=== PATIENT | female | born 1945 | race Caucasian/White ===

== ENCOUNTER 2021-05-31 08:09 | Day surgery (SDC) | payer BC, MEDICARE ==
[2021-05-29 10:25] VITALS: BP 140/60
[2021-05-29 10:27] LABS: BASOPHILS % (AUTO) 0.5 % (0.0-5.0); EOSINOPHILS % (AUTO) 4.9 % (0.0-8.0); HEMATOCRIT 37.1 % (36-48); LYMPHOCYTES % (AUTO) 22.5 % (21.0-51.0); MEAN CORPUSCULAR HEMOGLOBIN 28.6 pg (27.0-33.0); MEAN CORPUSCULAR HGB CONC 29.9 g/dL (32.0-36.0); MEAN CORPUSCULAR VOLUME 95.6 fL (79-99); MONOCYTES % (AUTO) 10.2 % (3.0-13.0); NEUTROPHILS % (AUTO) 61.6 % (40.0-77.0); PLATELET COUNT (AUTO) 165 K/uL (130-400); RED BLOOD CELL COUNT(AUTO) 3.88 MIL/uL (4.00-5.50); WHITE BLOOD COUNT (AUTO) 6.1 K/uL (4.8-10.8)
[2021-05-29 10:37] LABS: CREATININE 0.7 mg/dL (0.5-1.5)
[~2021-05-31] VITALS: Ht 160 cm; Wt 80.3 kg
[~2021-05-31 08:09] MED LIST: LORA10TA7 PO; ROSU5TAB12 PO
[2021-05-31] MEDS ORDERED: 0.9%NACL 1000ML 1,000 ML IV ONE (08:53)
[2021-05-31] MEDS ORDERED: IOHEXOL 350 MG/ML 100ML INFUS..BTL IV ONE (09:37)
== END 2021-05-31 12:20 | disposition home or self-care (01) ==
LOC: DAH 08:09
PROVIDERS: ATTEND Internal Medicine Hematology & Oncology
DX: K75.0 Abscess of liver (principal); D72.829 Elevated white blood cell count, unspecified; K76.89 Other specified diseases of liver; K57.30 Diverticulosis of large intestine without perforation or abscess without bleeding; J90 Pleural effusion, not elsewhere classified; D64.9 Anemia, unspecified; Z53.8 Procedure and treatment not carried out for other reasons
CPT/HCPCS: 36415; 74160; 80048; 85025; A4215; A4216; A4221; A4222; A4223 ×3; A4606; A4657; A4663; J7030 ×2; Q9967

== ENCOUNTER 2021-06-20 08:42 | Day surgery (SDC) | payer BC, MEDICARE ==
[2021-06-18 15:26] LABS: BASOPHILS % (AUTO) 0.3 % (0.0-5.0); EOSINOPHILS % (AUTO) 3.4 % (0.0-8.0); HEMATOCRIT 37.2 % (36-48); LYMPHOCYTES % (AUTO) 27.1 % (21.0-51.0); MEAN CORPUSCULAR HEMOGLOBIN 29.2 pg (27.0-33.0); MEAN CORPUSCULAR HGB CONC 30.1 g/dL (32.0-36.0); MEAN CORPUSCULAR VOLUME 96.9 fL (79-99); MONOCYTES % (AUTO) 8.9 % (3.0-13.0); PLATELET COUNT (AUTO) 182 K/uL (130-400); RED BLOOD CELL COUNT(AUTO) 3.84 MIL/uL (4.00-5.50); RED CELL DISTRIBUTION WIDTH 15.5 % (11.0-15.5); WHITE BLOOD COUNT (AUTO) 6.4 K/uL (4.8-10.8)
[2021-06-18 15:47] LABS: ALBUMIN 2.3 g/dL (3.5-5.0); BILIRUBIN,TOTAL 0.6 mg/dL (0.2-1.0); CREATININE 0.8 mg/dL (0.5-1.5); POTASSIUM 3.8 mmol/L (3.5-5.1); TOTAL PROTEIN, SERUM 5.7 g/dL (6.0-8.3)
[2021-06-20] MEDS ORDERED: 0.9%NACL 1000ML 1,000 ML IV ONE (10:14)
[2021-06-20] MEDS ORDERED: IOHEXOL-350 50ML VIAL IV ONE (11:09)
[2021-06-20 11:33] VITALS: BP 119/51
[2021-06-20 11:48] VITALS: BP 115/49
[2021-06-20 12:03] VITALS: BP 110/51
[2021-06-20 12:18] VITALS: BP 118/52
== END 2021-06-20 12:34 | disposition home or self-care (01) ==
LOC: DAH 08:42
PROVIDERS: ATTEND Internal Medicine Hematology & Oncology
DX: K75.0 Abscess of liver (principal); K76.89 Other specified diseases of liver; D72.829 Elevated white blood cell count, unspecified; D68.9 Coagulation defect, unspecified; I10 Essential (primary) hypertension; E78.5 Hyperlipidemia, unspecified; J44.9 Chronic obstructive pulmonary disease, unspecified; Z87.891 Personal history of nicotine dependence; Z98.891 History of uterine scar from previous surgery
CPT/HCPCS: 36415; 49424; 76080; 80053; 85025; 87635; A4215; A4216; A4221; A4222; A4223 ×3; A4606; A4663; C9803; J7030 ×2; Q9967; 42400

== ENCOUNTER → 2021-07-11 | Outpatient (CLI) | payer BC, MEDICARE ==
[~2021-07-11] VITALS: Ht 160 cm; Wt 61.3 kg
[~2021-07-11] MED LIST changes: +LACTATED RINGERS 1000ML 1,000 ML IV SCH; +LEVOFLOXACIN 500 MG/D5W 100 ML 100 ML IV SCH
[2021-07-11 11:59] LABS: HEMATOCRIT 42.9 % (36-48); MEAN CORPUSCULAR HEMOGLOBIN 29.2 pg (27.0-33.0); MEAN CORPUSCULAR HGB CONC 30.5 g/dL (32.0-36.0); MEAN CORPUSCULAR VOLUME 95.5 fL (79-99); PLATELET COUNT (AUTO) 170 K/uL (130-400); RED BLOOD CELL COUNT(AUTO) 4.49 MIL/uL (4.00-5.50); RED CELL DISTRIBUTION WIDTH 13.9 % (11.0-15.5); WHITE BLOOD COUNT (AUTO) 5.3 K/uL (4.8-10.8)
[2021-07-11 12:06] LABS: INR 1.17 (0.85-1.15); PROTHROMBIN TIME 12.6 SEC (9.6-11.6)
[2021-07-11 12:08] LABS: PARTIAL THROMBOPLASTIN TIME 29.7 SEC (26.3-35.5)
[2021-07-11 12:10] LABS: ALBUMIN 2.9 g/dL (3.5-5.0); BILIRUBIN,TOTAL 0.7 mg/dL (0.2-1.0); CREATININE 0.8 mg/dL (0.5-1.5); POTASSIUM 3.7 mmol/L (3.5-5.1)
[2021-07-15 09:55] VITALS: BP 180/86
== END | disposition home or self-care (01) ==
LOC: DAH 10:00 → EDSTATUS 07-16 07:30
PROVIDERS: ATTEND Urology
DX: Z01.818 Encounter for other preprocedural examination (principal); N20.0 Calculus of kidney; J90 Pleural effusion, not elsewhere classified; Z98.890 Other specified postprocedural states; Z79.01 Long term (current) use of anticoagulants
CPT/HCPCS: 36415; 71046; 74018; 80053; 85027; 85610; 85730; 87088; 93005; J7120

== ENCOUNTER → 2022-07-29 | Outpatient (CLI) | payer BC, MEDICARE ==
[~2022-07-29] MED LIST changes: +IOHEXOL 350 MG/ML 100ML INFUS..BTL IV ONE; -LACTATED RINGERS 1000ML 1,000 ML IV SCH; -LEVOFLOXACIN 500 MG/D5W 100 ML 100 ML IV SCH
== END | disposition home or self-care (01) ==
LOC: RAH 12:11
PROVIDERS: ATTEND Otolaryngology
DX: C32.0 Malignant neoplasm of glottis (principal); J84.10 Pulmonary fibrosis, unspecified; R59.0 Localized enlarged lymph nodes; M47.815 Spondylosis without myelopathy or radiculopathy, thoracolumbar region
CPT/HCPCS: 71260; 70491; Q9967

== ENCOUNTER 2022-11-27 12:31 | Inpatient (IN) | payer BC, MEDICARE ==
[~2022-11-27] VITALS: Ht 162.6 cm; Wt 54.3 kg
[~2022-11-27 12:31] MED LIST changes: -IOHEXOL 350 MG/ML 100ML INFUS..BTL IV ONE; +LEVOFLOXACIN 500 MG/D5W 100 ML 100 ML IV ONE
[2022-11-27] MEDS ORDERED: 0.9%NACL 1000ML 1,000 ML IV ONE (13:00)
[2022-11-27 13:02] LABS: IMMATURE GRANULOCYTE ABSOLUTE 0.04 K/uL (0-1); LYMPHOCYTES # (AUTO) 2.3 K/uL (1.0-4.8); LYMPHOCYTES % (AUTO) 42.6 % (21.0-51.0); MEAN CORPUSCULAR HEMOGLOBIN 30.5 pg (27.0-33.0); MEAN CORPUSCULAR HGB CONC 32.7 g/dL (32.0-36.0); MEAN CORPUSCULAR VOLUME 93.4 fL (79-99); MONOCYTES # (AUTO) 0.3 K/uL (0.1-1.0); NEUTROPHILS # (AUTO) 2.8 K/uL (1.8-7.7); NEUTROPHILS % (AUTO) 50.7 % (40.0-77.0); NUCLEATED RED BLOOD CELLS 0.5 % (0.0-0.19); PLATELET COUNT (AUTO) 113 K/uL (130-400); RED BLOOD CELL COUNT(AUTO) 5.14 MIL/uL (4.00-5.50); RED CELL DISTRIBUTION WIDTH 18.4 % (11.0-15.5); WHITE BLOOD COUNT (AUTO) 5.5 K/uL (4.8-10.8)
[2022-11-27 13:14] LABS: CREATININE 1.2 mg/dL (0.5-1.5); POTASSIUM 3.7 mmol/L (3.5-5.1)
[2022-11-27 13:16] LABS: INR 1.1 (0.85-1.15); PROTHROMBIN TIME 12.7 SEC (9.6-11.6)
[2022-11-27 13:18] LABS: PARTIAL THROMBOPLASTIN TIME 27.6 SEC (26.3-35.5)
[2022-11-27 13:19] LABS: ALBUMIN 3.1 g/dL (3.5-5.0); BILIRUBIN,TOTAL 2.5 mg/dL (0.2-1.0); TOTAL PROTEIN, SERUM 7.2 g/dL (6.0-8.3)
[2022-11-27 13:35] LABS: ADD UA MICROSCOPIC YES
[2022-11-27 13:37] LABS: APPEARANCE,URINE CLOUDY (CLEAR); BILIRUBIN,URINE NEGATIVE (NEGATIVE); COLOR,URINE YELLOW (YELLOW); GLUCOSE, URINE (UA) 30 mg/dL (NEGATIVE); KETONES,URINE 10 mg/dL (NEGATIVE); LEUKOCYTE ESTERASE ,URINE 500 Leu/uL (NEGATIVE); NITRATE,URINE NEGATIVE (NEGATIVE); OCCULT BLOOD,URINE NEGATIVE (NEGATIVE); PROTEIN,URINE 50 mg/dL (NEGATIVE)
[2022-11-27 14:10] LABS: BACTERIA,URINE RARE /HPF (None Seen); MUCUS,URINE RARE LPF (None Seen); SQUAMOUS EPITHELIAL CELL,UR MANY /HPF (0-2)
[2022-11-27] MEDS ORDERED: APIX5TAB PO (14:15)
[2022-11-27] MEDS ORDERED: LEVOFLOXACIN 500 MG/D5W 100 ML 100 ML IV STA (14:55)
[2022-11-27] MEDS ORDERED: LEVOFLOXACIN 500 MG/D5W 100 ML 100 ML IV SCH (16:00)
[2022-11-27] MEDS ORDERED: ACETAMINOPHEN 650 MG/20.3 ML UDCUP PEG PRN (16:00)
[2022-11-27] MEDS ORDERED: 0.9%NACL 1000ML 1,000 ML IV SCH (16:30)
[2022-11-27] MEDS: DEXTROSE 5%-WATER 1,000 ML IV SCH (17:01)
[2022-11-27] MEDS ORDERED: ACETAMINOPHEN 650 MG/20.3 ML UDCUP PO PRN (20:00)
[2022-11-27 20:26] VITALS: BP 125/73; PULSE 114; RESP 22
[2022-11-27 21:30] VITALS: O2SAT 94
[2022-11-27] MEDS: FAMOTIDINE 20MG VIAL IV SCH (22:27)
[2022-11-28] VITALS (7 sets, daily range): BP systolic 125–172; BP diastolic 53–85; PULSE 106–127; RESP 16–20; O2SAT 96
[2022-11-28 03:45] LABS: BASOPHILS # (AUTO) 0.09 K/uL (0.00-0.20); BASOPHILS % (AUTO) 2.4 % (0.0-5.0); HEMATOCRIT 38.2 % (36-48); IMMATURE GRANULOCYTE ABSOLUTE 0.04 K/uL (0-1); LYMPHOCYTES # (AUTO) 0.9 K/uL (1.0-4.8); LYMPHOCYTES % (AUTO) 22.8 % (21.0-51.0); MEAN CORPUSCULAR HEMOGLOBIN 30.7 pg (27.0-33.0); MEAN CORPUSCULAR HGB CONC 31.9 g/dL (32.0-36.0); MONOCYTES # (AUTO) 0.2 K/uL (0.1-1.0); MONOCYTES % (AUTO) 5.4 % (3.0-13.0); NEUTROPHILS # (AUTO) 2.5 K/uL (1.8-7.7); NEUTROPHILS % (AUTO) 68.3 % (40.0-77.0); PLATELET COUNT (AUTO) 46 K/uL (130-400); RED BLOOD CELL COUNT(AUTO) 3.98 MIL/uL (4.00-5.50); RED CELL DISTRIBUTION WIDTH 17.3 % (11.0-15.5); WHITE BLOOD COUNT (AUTO) 3.7 K/uL (4.8-10.8)
[2022-11-28 04:54] LABS: ERYTHROCYTE SEDIMENTATION RATE 60 MM/HR (0-30)
[2022-11-28 05:33] LABS: CRP QUANTITATIVE 247.7 mg/L (0.00-9.0)
[2022-11-28 05:34] LABS: POTASSIUM 3.3 mmol/L (3.5-5.1)
[2022-11-28 05:35] LABS: BILIRUBIN,TOTAL 2.2 mg/dL (0.2-1.0); CREATININE 0.9 mg/dL (0.5-1.5)
[2022-11-28 05:38] LABS: TOTAL PROTEIN, SERUM 6.6 g/dL (6.0-8.3)
[2022-11-28 05:39] LABS: ALBUMIN 2.4 g/dL (3.5-5.0)
[2022-11-28] MEDS ORDERED: POTASSIUM CHLORIDE 20MEQ/100ML 100 ML IV PRN (08:30)
[2022-11-28] MEDS ORDERED: MAGNESIUM 2GM PREMIX 50ML 50 ML IV PRN (08:30)
[2022-11-28] MEDS: MORPHINE 2 MG SYG IVP PRN ×3 (10:56→21:24)
[2022-11-28] MEDS ORDERED: SOLU-MEDROL 125MG VIAL IVP SCH (12:30)
[2022-11-28] MEDS: DEXTROSE 5%-WATER 1,000 ML IV SCH (13:00)
[2022-11-28] MEDS ORDERED: VANCOMYCIN PROTOCOL PER PHARMACY IV SCH (14:30)
[2022-11-28] MEDS: LEVOFLOXACIN 250 MG/D5W 50ML 50 ML IVPB SCH (16:21)
[2022-11-28] MEDS: VANCOMYCIN 750MG VIAL IVPB SCH (17:32)
[2022-11-28] MEDS: SOLU-MEDROL 125MG VIAL IVP SCH (20:19)
[2022-11-28] MEDS: FAMOTIDINE 20MG VIAL IV SCH (20:19)
[2022-11-28] MEDS: ONDANSETRON 4MG INJ IVP PRN (21:23)
[2022-11-29] VITALS (25 sets, daily range): BP systolic 129–164; BP diastolic 53–96; PULSE 57–109; RESP 14–20; O2SAT 96
[2022-11-29] MEDS: SOLU-MEDROL 125MG VIAL IVP SCH ×4 (02:54→20:08)
[2022-11-29 03:58] LABS: HEMATOCRIT 41.4 % (36-48); MEAN CORPUSCULAR HEMOGLOBIN 30.8 pg (27.0-33.0); MEAN CORPUSCULAR HGB CONC 31.9 g/dL (32.0-36.0); MEAN CORPUSCULAR VOLUME 96.5 fL (79-99); PLATELET COUNT (AUTO) 53 K/uL (130-400); RED BLOOD CELL COUNT(AUTO) 4.29 MIL/uL (4.00-5.50); RED CELL DISTRIBUTION WIDTH 17.4 % (11.0-15.5); WHITE BLOOD COUNT (AUTO) 2.9 K/uL (4.8-10.8)
[2022-11-29] MEDS: MORPHINE 2 MG SYG IVP PRN (03:59)
[2022-11-29] MEDS: VANCOMYCIN 750MG VIAL IVPB SCH ×2 (03:59→16:05)
[2022-11-29 04:11] LABS: ALBUMIN 2.3 g/dL (3.5-5.0); BILIRUBIN,TOTAL 1.4 mg/dL (0.2-1.0); CREATININE 0.9 mg/dL (0.5-1.5); POTASSIUM 5.1 mmol/L (3.5-5.1); TOTAL PROTEIN, SERUM 6.1 g/dL (6.0-8.3)
[2022-11-29 04:24] LABS: BAND NEUTROPHILS % (MANUAL) 12 % (0-2); LYMPHOCYTES % (MANUAL) 20 % (22-44); MAN.DIFF COMMENT-IMPRESSION MANUAL DIFFERENTIAL; MONOCYTES % (MANUAL) 8 % (2-9); PLATELET MORPHOLOGY COMMENT DECREASED; SEGMENTED NEUTROPHILS % 60 % (40-70); TOTAL CELLS COUNTED 25; WBC MORPHOLOGY CONSISTENT W/DIFF
[2022-11-29] MEDS: PANTOPRAZOLE 40 MG/VIAL IVP SCH (08:41)
[2022-11-29] MEDS: DEXTROSE 5%-WATER 1,000 ML IV SCH ×2 (08:41→23:30)
[2022-11-29] MEDS ORDERED: PROPOFOL 10 MG/ML 20ML VIAL IV ONE (11:39)
[2022-11-29] MEDS: LEVOFLOXACIN 250 MG/D5W 50ML 50 ML IVPB SCH (14:42)
[2022-11-29] MEDS: FAMOTIDINE 20MG VIAL IV SCH (20:08)
[2022-11-29 22:19] LABS: APPEARANCE,URINE CLEAR (CLEAR); BILIRUBIN,URINE NEGATIVE (NEGATIVE); COLOR,URINE YELLOW (YELLOW); GLUCOSE, URINE (UA) 150 mg/dL (NEGATIVE); KETONES,URINE NEGATIVE (NEGATIVE); LEUKOCYTE ESTERASE ,URINE NEGATIVE Leu/uL (NEGATIVE); NITRATE,URINE NEGATIVE (NEGATIVE); OCCULT BLOOD,URINE NEGATIVE (NEGATIVE); PH,URINE 5.5 (5.0-8.0); PROTEIN,URINE 30 mg/dL (NEGATIVE); UROBILINOGEN,URINE 0.2 mg/dL (0.2-1.0)
[2022-11-29 22:20] LABS: ADD UA MICROSCOPIC YES
[2022-11-29 22:23] LABS: MUCUS,URINE RARE LPF (None Seen); SQUAMOUS EPITHELIAL CELL,UR FEW /HPF (0-2)
[2022-11-29 22:24] LABS: CHLORIDE,URINE RANDOM 174 mmol/L (110-250); CREATININE,URINE RANDOM 64 mg/dL (30-135); POTASSIUM,URINE RANDOM 37 mmol/L (25-125); SODIUM,URINE RANDOM 100 mmol/l (40-220)
[2022-11-30] MEDS: SOLU-MEDROL 125MG VIAL IVP SCH ×2 (03:04→09:16)
[2022-11-30 03:27] VITALS: BP 161/97; PULSE 105; RESP 14
[2022-11-30] MEDS: VANCOMYCIN 750MG VIAL IVPB SCH (03:45)
[2022-11-30 05:11] LABS: BASOPHILS # (AUTO) 0.04 K/uL (0.00-0.20); BASOPHILS % (AUTO) 1.2 % (0.0-5.0); HEMATOCRIT 35.9 % (36-48); IMMATURE GRANULOCYTE ABSOLUTE 0.02 K/uL (0-1); LYMPHOCYTES # (AUTO) 0.4 K/uL (1.0-4.8); LYMPHOCYTES % (AUTO) 12.7 % (21.0-51.0); MEAN CORPUSCULAR HEMOGLOBIN 30.6 pg (27.0-33.0); MEAN CORPUSCULAR HGB CONC 33.4 g/dL (32.0-36.0); MEAN CORPUSCULAR VOLUME 91.6 fL (79-99); MONOCYTES # (AUTO) 0.3 K/uL (0.1-1.0); MONOCYTES % (AUTO) 7.7 % (3.0-13.0); NEUTROPHILS # (AUTO) 2.5 K/uL (1.8-7.7); NEUTROPHILS % (AUTO) 77.8 % (40.0-77.0); PLATELET COUNT (AUTO) 52 K/uL (130-400); RED BLOOD CELL COUNT(AUTO) 3.92 MIL/uL (4.00-5.50); RED CELL DISTRIBUTION WIDTH 16.5 % (11.0-15.5); WHITE BLOOD COUNT (AUTO) 3.2 K/uL (4.8-10.8)
[2022-11-30 05:42] LABS: BILIRUBIN,TOTAL 1.4 mg/dL (0.2-1.0); CREATININE 0.8 mg/dL (0.5-1.5); MAGNESIUM 1.8 mg/dL (1.80-2.40); PHOSPHORUS 1.9 mg/dL (2.5-4.9); TOTAL PROTEIN, SERUM 5.4 g/dL (6.0-8.3); URIC ACID 3.9 mg/dL (2.6-7.2)
[2022-11-30 06:21] LABS: POTASSIUM 2.9 mmol/L (3.5-5.1)
[2022-11-30 07:00] VITALS: BP 172/97; PULSE 92; RESP 16
[2022-11-30] MEDS: PANTOPRAZOLE 40 MG/VIAL IVP SCH (09:16)
[2022-11-30] MEDS ORDERED: POTASSIUM CHLORIDE 10% ELIXIR 20 MEQ/15 ML UDCUP PEG ONE (10:30)
[2022-11-30] MEDS: AMLODIPINE 5 MG TAB PEG SCH (11:07)
[2022-11-30 11:35] VITALS: BP 166/98; PULSE 108; RESP 16
[2022-11-30] MEDS: LEVOFLOXACIN 250 MG/D5W 50ML 50 ML IVPB SCH (14:27)
[2022-11-30] MEDS ORDERED: PHARMACY COMMUNICATION MISC SCH (14:30)
[2022-11-30 15:00] VITALS: BP 127/72; PULSE 104; RESP 16
[2022-11-30] MEDS: WATER IV SCH (17:23)
[2022-11-30] MEDS: DEXTROSE 5% IV SCH (17:23)
[2022-11-30] MEDS: POTASSIUM CHLORIDE IV SCH (17:23)
[2022-11-30 20:00] VITALS: BP 126/79; PULSE 98; RESP 18
[2022-11-30 20:40] VITALS: O2SAT 97
[2022-12-01] VITALS (8 sets, daily range): BP systolic 93–158; BP diastolic 56–90; PULSE 85–96; RESP 16–19; O2SAT 96–98
[2022-12-01] MEDS: POTASSIUM CHLORIDE IV SCH ×2 (01:30→13:19)
[2022-12-01] MEDS: DEXTROSE 5% IV SCH ×2 (01:30→13:19)
[2022-12-01] MEDS: WATER IV SCH ×2 (01:30→13:19)
[2022-12-01 05:01] LABS: BASOPHILS # (AUTO) 0.05 K/uL (0.00-0.20); BASOPHILS % (AUTO) 1.2 % (0.0-5.0); HEMATOCRIT 34.1 % (36-48); IMMATURE GRANULOCYTE ABSOLUTE 0.07 K/uL (0-1); LYMPHOCYTES # (AUTO) 0.9 K/uL (1.0-4.8); LYMPHOCYTES % (AUTO) 21.2 % (21.0-51.0); MEAN CORPUSCULAR HEMOGLOBIN 30.6 pg (27.0-33.0); MEAN CORPUSCULAR HGB CONC 33.7 g/dL (32.0-36.0); MEAN CORPUSCULAR VOLUME 90.7 fL (79-99); MONOCYTES # (AUTO) 0.4 K/uL (0.1-1.0); MONOCYTES % (AUTO) 8.2 % (3.0-13.0); NEUTROPHILS # (AUTO) 2.9 K/uL (1.8-7.7); NEUTROPHILS % (AUTO) 67.8 % (40.0-77.0); PLATELET COUNT (AUTO) 58 K/uL (130-400); RED BLOOD CELL COUNT(AUTO) 3.76 MIL/uL (4.00-5.50); WHITE BLOOD COUNT (AUTO) 4.3 K/uL (4.8-10.8)
[2022-12-01 05:06] LABS: BILIRUBIN,TOTAL 1.3 mg/dL (0.2-1.0); CREATININE 0.6 mg/dL (0.5-1.5); POTASSIUM 4.1 mmol/L (3.5-5.1); TOTAL PROTEIN, SERUM 5.2 g/dL (6.0-8.3)
[2022-12-01] MEDS: PANTOPRAZOLE 40 MG/VIAL IVP SCH (08:42)
[2022-12-01] MEDS: AMLODIPINE 5 MG TAB PEG SCH (08:42)
[2022-12-01] MEDS: MORPHINE 2 MG SYG IVP PRN (09:25)
[2022-12-01] MEDS: LEVOFLOXACIN 250 MG/D5W 50ML 50 ML IVPB SCH (16:42)
[2022-12-01 19:23] LABS: THYROID STIMULATING HORMONE 0.58 uIU/mL (0.36-3.74)
[2022-12-02] VITALS (9 sets, daily range): BP systolic 97–112; BP diastolic 50–69; PULSE 100–112; RESP 16–20; O2SAT 9–96
[2022-12-02 05:41] LABS: HEMATOCRIT 38.4 % (36-48); MEAN CORPUSCULAR HEMOGLOBIN 30.7 pg (27.0-33.0); MEAN CORPUSCULAR HGB CONC 34.1 g/dL (32.0-36.0); MEAN CORPUSCULAR VOLUME 89.9 fL (79-99); PLATELET COUNT (AUTO) 62 K/uL (130-400); RED BLOOD CELL COUNT(AUTO) 4.27 MIL/uL (4.00-5.50); RED CELL DISTRIBUTION WIDTH 16.3 % (11.0-15.5); WHITE BLOOD COUNT (AUTO) 4.9 K/uL (4.8-10.8)
[2022-12-02 05:51] LABS: CREATININE 0.7 mg/dL (0.5-1.5); MAGNESIUM 1.6 mg/dL (1.80-2.40); PHOSPHORUS 1.3 mg/dL (2.5-4.9); POTASSIUM 4.6 mmol/L (3.5-5.1)
[2022-12-02 06:06] LABS: BAND NEUTROPHILS % (MANUAL) 2 % (0-2); EOSINOPHILS % (MANUAL) 1 % (1-6); LYMPHOCYTES % (MANUAL) 55 % (22-44); MAN.DIFF COMMENT-IMPRESSION MANUAL DIFFERENTIAL; MONOCYTES % (MANUAL) 5 % (2-9); SEGMENTED NEUTROPHILS % 37 % (40-70); TOTAL CELLS COUNTED 100; WBC MORPHOLOGY SMUDGE CELLS 1+
[2022-12-02] MEDS ORDERED: MAGNESIUM 4GM PREMIX 100ML 100 ML IV PRN (08:00)
[2022-12-02] MEDS ORDERED: ERGOCALCIFEROL (VITAMIN D2) 50,000 UNIT CAPSULE PO SCH (09:00)
[2022-12-02] MEDS: AMLODIPINE 5 MG TAB PEG SCH (09:36)
[2022-12-02] MEDS: PANTOPRAZOLE 40 MG/VIAL IVP SCH (09:36)
[2022-12-02] MEDS: NEUTRA-PHOS PACKET 1 EACH PO SCH ×4 (09:37→21:00)
[2022-12-02] MEDS ORDERED: LACTULOSE 20 GM/30 ML UDCUP PO ONE (14:30)
[2022-12-02] MEDS: LEVOFLOXACIN 250 MG/D5W 50ML 50 ML IVPB SCH (14:54)
[2022-12-02] MEDS ORDERED: MORPHINE 2 MG SYG IVP PRN (19:30)
[2022-12-02] MEDS: ONDANSETRON 4MG INJ IVP PRN (20:57)
[2022-12-02] MEDS: LACTULOSE 20 GM/30 ML UDCUP PO SCH (21:00)
[2022-12-03] VITALS (8 sets, daily range): BP systolic 100–115; BP diastolic 56–62; PULSE 86–109; RESP 17–20; O2SAT 94–97
[2022-12-03 03:55] LABS: BASOPHILS # (AUTO) 0.08 K/uL (0.00-0.20); BASOPHILS % (AUTO) 1.2 % (0.0-5.0); EOSINOPHILS # (AUTO) 0.01 K/uL (0.00-0.70); EOSINOPHILS % (AUTO) 0.2 % (0.0-8.0); HEMATOCRIT 36.8 % (36-48); IMMATURE GRANULOCYTE ABSOLUTE 0.04 K/uL (0-1); LYMPHOCYTES # (AUTO) 2.7 K/uL (1.0-4.8); LYMPHOCYTES % (AUTO) 41.6 % (21.0-51.0); MEAN CORPUSCULAR HEMOGLOBIN 30.3 pg (27.0-33.0); MEAN CORPUSCULAR HGB CONC 33.4 g/dL (32.0-36.0); MEAN CORPUSCULAR VOLUME 90.6 fL (79-99); MONOCYTES # (AUTO) 0.2 K/uL (0.1-1.0); MONOCYTES % (AUTO) 3.2 % (3.0-13.0); NEUTROPHILS # (AUTO) 3.5 K/uL (1.8-7.7); NEUTROPHILS % (AUTO) 53.2 % (40.0-77.0); PLATELET COUNT (AUTO) 62 K/uL (130-400); RED BLOOD CELL COUNT(AUTO) 4.06 MIL/uL (4.00-5.50); RED CELL DISTRIBUTION WIDTH 16.5 % (11.0-15.5); WHITE BLOOD COUNT (AUTO) 6.6 K/uL (4.8-10.8)
[2022-12-03 04:08] LABS: CREATININE 0.8 mg/dL (0.5-1.5); MAGNESIUM 2.5 mg/dL (1.80-2.40); POTASSIUM 4.8 mmol/L (3.5-5.1)
[2022-12-03] MEDS: LACTULOSE 20 GM/30 ML UDCUP PO SCH ×3 (09:00→21:00)
[2022-12-03] MEDS: PANTOPRAZOLE 40 MG/VIAL IVP SCH (09:34)
[2022-12-03] MEDS: AMLODIPINE 5 MG TAB PEG SCH (09:34)
[2022-12-03] MEDS: NEUTRA-PHOS PACKET 1 EACH PO SCH ×4 (09:41→21:17)
[2022-12-03] MEDS ORDERED: DIATR MEGLU/DIATRIZOATE SODIUM 30 ML BOTTLE ONE (11:42)
[2022-12-03] MEDS ORDERED: MORPHINE 2 MG SYG IVP ONE (13:30)
[2022-12-03] MEDS ORDERED: MAGNESIUM 2GM PREMIX 50ML 50 ML IV PRN (16:00)
[2022-12-03] MEDS: LEVOFLOXACIN 250 MG/D5W 50ML 50 ML IVPB SCH (17:46)
[2022-12-04 04:16] VITALS: BP 110/50; PULSE 106; RESP 17
[2022-12-04 05:07] LABS: HEMATOCRIT 33.2 % (36-48); MEAN CORPUSCULAR HEMOGLOBIN 30.7 pg (27.0-33.0); MEAN CORPUSCULAR HGB CONC 33.1 g/dL (32.0-36.0); MEAN CORPUSCULAR VOLUME 92.7 fL (79-99); RED BLOOD CELL COUNT(AUTO) 3.58 MIL/uL (4.00-5.50); RED CELL DISTRIBUTION WIDTH 16.4 % (11.0-15.5); WHITE BLOOD COUNT (AUTO) 6.2 K/uL (4.8-10.8)
[2022-12-04 05:33] LABS: CREATININE 0.7 mg/dL (0.5-1.5); MAGNESIUM 2.1 mg/dL (1.80-2.40); POTASSIUM 4.3 mmol/L (3.5-5.1)
[2022-12-04 07:39] VITALS: BP 100/54; PULSE 104; RESP 16
[2022-12-04] MEDS: LACTULOSE 20 GM/30 ML UDCUP PO SCH (09:00)
[2022-12-04] MEDS: AMLODIPINE 5 MG TAB PEG SCH (10:45)
[2022-12-04] MEDS: PANTOPRAZOLE 40 MG/VIAL IVP SCH (10:46)
[2022-12-04 12:03] VITALS: BP 121/68; PULSE 111; RESP 16
[2022-12-04] MEDS: LEVOFLOXACIN 250 MG/D5W 50ML 50 ML IVPB SCH (15:30)
[2022-12-04 16:00] VITALS: BP 102/55; PULSE 103; RESP 16
== END 2022-12-04 17:00 | DRG 871 ==
LOC: EDH 12:31 → EDHIP 15:31 → 4BH 20:20
PROVIDERS: ADMIT Internal Medicine; ATTEND Internal Medicine
PROC: 0DH63UZ Insertion of Feeding Device into Stomach, Percutaneous Approach (ICD-10-PCS; principal; 2022-11-29)
DX: A41.89 Other specified sepsis (principal); E43 Unspecified severe protein-calorie malnutrition; J96.01 Acute respiratory failure with hypoxia; R65.21 Severe sepsis with septic shock; E87.0 Hyperosmolality and hypernatremia; E87.1 Hypo-osmolality and hyponatremia; N39.0 Urinary tract infection, site not specified; R64 Cachexia; D64.9 Anemia, unspecified; D69.6 Thrombocytopenia, unspecified; K29.60 Other gastritis without bleeding; K20.90 Esophagitis, unspecified without bleeding; E55.9 Vitamin D deficiency, unspecified; E87.6 Hypokalemia; I10 Essential (primary) hypertension; R13.12 Dysphagia, oropharyngeal phase; R62.7 Adult failure to thrive; Z66 Do not resuscitate; Z79.01 Long term (current) use of anticoagulants; Z85.21 Personal history of malignant neoplasm of larynx; Z85.819 Personal history of malignant neoplasm of unspecified site of lip, oral cavity, and pharynx; Z85.850 Personal history of malignant neoplasm of thyroid; Z85.89 Personal history of malignant neoplasm of other organs and systems; Z86.718 Personal history of other venous thrombosis and embolism; Z87.891 Personal history of nicotine dependence; Z88.0 Allergy status to penicillin; Z90.710 Acquired absence of both cervix and uterus; Z92.21 Personal history of antineoplastic chemotherapy; Z92.3 Personal history of irradiation; Z93.1 Gastrostomy status; Z68.20 Body mass index [BMI] 20.0-20.9, adult
CPT/HCPCS: 36415; 43246; 71045; 74018; 76536; 80048; 80053; 80202; 81001; 82306; 82436; 82550; 82570; 83605; 83735; 83935; 84100; 84133; 84134; 84145; 84300; 84439; 84443; 84445; 84484; 84550; 85025; 85027; 85610; 85651; 85730; 86140; 87040; 87077; 87088; 87186; 92610; 93005; 93306; 93356; 99291; A4606; C9113; G0378; J1956; J2270; J2405; J2704; J2930; J3475; J3480; J3490; J7030; J7070; Q9963; A4215; A4216; A4222; A4223; A4620; A7002; J3370

== ENCOUNTER 2023-07-22 07:47 | Day surgery (SDC) | payer MEDICARE, BC ==
[2023-07-22] VITALS (11 sets, daily range): BP systolic 109–152; BP diastolic 40–70; PULSE 72–104; RESP 14–22
[~2023-07-22] VITALS: Ht 160 cm; Wt 59.4 kg
[~2023-07-22 07:47] MED LIST changes: +APIX5TAB PO; -LEVOFLOXACIN 500 MG/D5W 100 ML 100 ML IV ONE; -LORA10TA7 PO; -ROSU5TAB12 PO; +VALA100031 PO
[2023-07-22] MEDS: 0.9%NACL 1000ML 1,000 ML IV ONE (10:30)
[2023-07-22] MEDS ORDERED: PROPOFOL 10 MG/ML 20ML VIAL IV ONE (11:54)
== END 2023-07-22 13:30 | disposition home or self-care (01) ==
LOC: ENDO 07:47 → DAH 07:47 → ENDO 13:30
PROVIDERS: ATTEND Internal Medicine Gastroenterology
DX: R13.12 Dysphagia, oropharyngeal phase (principal); K22.89 Other specified disease of esophagus; I82.409 Acute embolism and thrombosis of unspecified deep veins of unspecified lower extremity; K22.2 Esophageal obstruction; C14.0 Malignant neoplasm of pharynx, unspecified; Z79.899 Other long term (current) drug therapy; Z88.0 Allergy status to penicillin; Z90.89 Acquired absence of other organs; Z90.710 Acquired absence of both cervix and uterus; Z98.890 Other specified postprocedural states; Z86.718 Personal history of other venous thrombosis and embolism; Z79.01 Long term (current) use of anticoagulants; Z86.19 Personal history of other infectious and parasitic diseases; Z93.1 Gastrostomy status
CPT/HCPCS: 43235; 43762; J7030 ×2; J2704; A4620; A4215 ×2; A4223; A7002; A4222; A4221; A4663; A4606; J3490

== ENCOUNTER → 2023-08-27 | Outpatient (CLI) | payer MEDICARE ==
[~2023-08-27] MED LIST changes: +DIATR MEGLU/DIATRIZOATE SODIUM 30 ML BOTTLE ONE
== END | disposition home or self-care (01) ==
LOC: RAH 11:27
PROVIDERS: ATTEND Internal Medicine Gastroenterology
DX: K94.20 Gastrostomy complication, unspecified (principal)
CPT/HCPCS: 74018; Q9963

== ENCOUNTER → 2023-11-05 | Outpatient (CLI) | payer MEDICARE ==
[~2023-11-05] MED LIST changes: -DIATR MEGLU/DIATRIZOATE SODIUM 30 ML BOTTLE ONE
== END | disposition home or self-care (01) ==
LOC: RAH 13:06
PROVIDERS: ATTEND Family Medicine
DX: Z12.31 Encounter for screening mammogram for malignant neoplasm of breast (principal); M85.88 Other specified disorders of bone density and structure, other site; M81.0 Age-related osteoporosis without current pathological fracture; R92.343 Mammographic extreme density, bilateral breasts; R92.1 Mammographic calcification found on diagnostic imaging of breast
CPT/HCPCS: 77067; 77080